=== PATIENT | male | born 1955 | race Caucasian/White ===

== ENCOUNTER 2021-03-12 22:28 | Inpatient (IN) | payer MEDICARE, OTHER ==
[~2021-03-12] VITALS: Ht 188 cm; Wt 90.3 kg
[2021-03-12 23:08] LABS: HEMOGLOBIN 11.9 gm/dl (14.0-17.5); RED BLOOD COUNT 3.45 M/UL (4.20-5.50); WHITE BLOOD COUNT 9.4 K/UL (4.5-11.0)
[2021-03-12 23:31] LABS: BUN/CREATININE RATIO 17 (0-10)
[2021-03-13] MEDS ORDERED: AZITHROMYCIN250 MG PO (05:31)
[2021-03-13] MEDS ORDERED: FUROSEMIDE20 MG PO (05:39)
[2021-03-13] MEDS ORDERED: POTASSIUM CHLO20 ME1 PO (05:40)
[2021-03-13] MEDS ORDERED: ADULT LOW DOSE81 MG PO (13:34)
--- NOTE | 2021-03-13 16:20 | NUR ---
pt was seen by cardiology [employer] @ 10:45. pt stated he didn't want to try any of the med that were beimg recommended for him due to the fact that his dr had tried those meds before and they didnt work for him. pt was seen by DR. Bravo.She told the pt when he was cleared by cardiology he would be disharged. PT was under the impression he was waiting on cardiology DR to come and see him. DR. Bravo thought cardiology was going to see the pt as well before discharge. The pt waited for several hours. I called the manager drug and he said his [employer] had seen the pt and he was cleared for discharge. He didnt't need to see him. I discharged the pt home.
== END 2021-03-13 16:19 | disposition home or self-care (01) | DRG 308 ==
LOC: ER1 22:28 → CDU 23:52 → PROG CARE 23:52
PROVIDERS: Emergency Medicine; ADMIT Internal Medicine
DX: I48.0 Paroxysmal atrial fibrillation (principal); U07.1 COVID-19; C92.10 Chronic myeloid leukemia, BCR/ABL-positive, not having achieved remission; I10 Essential (primary) hypertension; E87.6 Hypokalemia; Z96.651 Presence of right artificial knee joint; I49.5 Sick sinus syndrome; D64.9 Anemia, unspecified; I42.9 Cardiomyopathy, unspecified; I45.19 Other right bundle-branch block; E78.5 Hyperlipidemia, unspecified; Z95.0 Presence of cardiac pacemaker; Z91.048 Other nonmedicinal substance allergy status; Z82.49 Family history of ischemic heart disease and other diseases of the circulatory system; Z98.890 Other specified postprocedural states; Z91.14 Patient's other noncompliance with medication regimen; Z79.899 Other long term (current) drug therapy; Z79.82 Long term (current) use of aspirin; Z87.442 Personal history of urinary calculi; Z79.01 Long term (current) use of anticoagulants
CPT/HCPCS: 71045; 80053; 82550; 82553; 83735; 83874; 84100; 84484; 85025; 85610; 85730; 93005; 99285; J1650; Q9967; U0002